=== PATIENT | female | born 1985 | race Caucasian/White ===

== ENCOUNTER 2020-05-13 15:56 | Outpatient (REF) | payer MEDICARE, MEDICAID, SELFPAY ==
[2020-05-14 11:30] LABS: SARS COV2 PCR INHOUSE NEGATIVE (Negative)
== END 2020-05-13 15:57 | disposition home or self-care (01) ==
LOC: HO.LAB 15:56
PROVIDERS: Visit Provider Internal Medicine
DX: Z20.822 Contact with and (suspected) exposure to COVID-19 (principal)
CPT/HCPCS: C9803; U0003

== ENCOUNTER 2020-05-27 15:49 | Outpatient (REF) | payer MEDICARE, MEDICAID, SELFPAY | END 2020-05-27 15:50 | disposition home or self-care (01) | LOC: HO.LAB 15:49 | PROVIDERS: Visit Provider Internal Medicine | DX: Z20.822 Contact with and (suspected) exposure to COVID-19 (principal) | CPT/HCPCS: C9803; U0003; U0005 ==

== ENCOUNTER → 2020-07-27 13:45 | Outpatient (BNVA) | payer SELFPAY | PROVIDERS: PCP Internal Medicine | DX: Z11.1 Encounter for screening for respiratory tuberculosis (principal) ==

== ENCOUNTER → 2023-10-17 11:36 | Outpatient (BNVA) | payer SELFPAY | PROVIDERS: PCP Internal Medicine | DX: Z11.1 Encounter for screening for respiratory tuberculosis (principal) ==

== ENCOUNTER 2024-12-26 09:33 | Outpatient (AMB) | payer OTHER, SELFPAY ==
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
[2024-12-26 09:39] VITALS: BMI 39.0
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
--- OUTSIDE RECORDS SUMMARY | 2024-12-26 10:33 | XMS_ITS | Encounter Summary ---
Author Organization [facility] Address [address] [place] [address] Care Team Providers Care Ed Tech Name Role Phone Prudence Balbuena MD Primary Care Provider [phone] Reason for Visit * Reason Onset Date Comments itchiness 10/27/2024 Mass 10/27/2024 Encounter Details Date Type Department Care Team (Late st Contact Info) Description 10/27/2024 Nurse Triage Adult Medicine [address] [phone] Prudence Balbuena MD [address] [place] [address] Social History Tobacco Use Types Packs/Day Years Used Date Smoking Tobacco: Former Cigarettes 0.5 20 Q uit: 03/26/2020 Passive Smoke Exposure: Never Smokeless Tobacco: Never Alcohol Use Standard Drinks/Week Comments Not Currently 0 (1 standard drink = 0.6 oz pur e alcohol) Comments Unknown Sex and Gender Information Value Date Recorded Sex Assigned at Not on file Legal Sex Female 11:39 AM EST Gender Identity Not on file Sexual Orientation Not on file documented as of this encounter Progress Notes * Mira Williamson RN - 10/27/2024 2:20 PM EDT Pt had tdap on Sunday now has a 2 inch red hard area on her arm and area is itchy and warm to touchyesterday she did not feel well with FLORES and fatigue , today she is well, took tylenol for pain has nl CSM no fever , no N/V Advised home care following the immunization reaction Protocol. RN reinforced telephone consultation and advice. Reviewed with the patient the signs and symptoms to watch for that would require immediate attention. If symptoms change, worsen or increase in intensity, to call back immediately. Reason for Disposition Immunization needed, questions about Td (Tetanus, Diphtheria), Tdap (Tetanus, Diphtheria, Pertussis) vaccine reaction: painless lump at injection site Answer Assessment - Initial Assessment Questions 1. SYMPTOMS: What is the main symptom? (e.g., pain, redness, or swelling at injection site; feeling tired, fever, muscle aches) Red ness and itiching at site 2. ONSET: When was the vaccine (shot) given? How much later did the 2 days begin? (e.g., hours,days ago) Sunday 3. SEVERITY: How bad is it? mild 4. FEVER: Do you have a fever? If Yes, ask: What is your temperature, how was it measured, and when did it start? no 5. IMMUNIZATIONS GIVEN: What shots have you recently received? tdap 6. PAST REACTIONS: Have you reacted to immunizations before? If Yes, ask: What happened? no 7. OTHER SYMPTOMS: Do you have any other symptoms? None 8. : Is there any chance you are ? When was your last menstrual period? na Protocols used: Immunization [id number] * Emory Lock - 10/27/2024 1:43 PM EDT Patient call requires triage: Symptoms patient is presenting: Patient called stating that she got a vaccination recently , statesthat the bump is itchy and hurts , as well as hard , would like to speak to nurse , states she got the vaccination on Sunday at our facility How long has patient had these symptoms?: 10/24/24 For ALL patients calling to schedule any appointment (routine, sick visit, follow up, consult, etc.) in the outpatient setting please ask the following questions: Do you have fever of higher than 101, sore throat with difficulty swallowing or severe shortness ofbreath? no If YES to any of these above symptoms, send a message to triage and do not book. Red dot. If no, an audio or video visit should be booked. Have you had close contact with someone with Coronavirus in the last 14 days? no Have you traveled abroad? no Have you traveled recently to another state outside of [place], [place], [place], [place], [place], [place], [place]? no o If yes, did you quarantine for 14 days or have a negative covid test? no If yes to any of the above, patient is not to be scheduled in office until after 14 day quarantine or negative covid test. If pain or injury related was it due to an accident at work or from a motor vehicle accident? If yes, date of accident/Injury: No If yes, gather [employer] insurance information [employer] Party Information: not applicable PCP: Prudence Balbuena MD Payor: MEDICARE / Plan: MEDICARE PART A & B / Product Type: Medicare / P documented in this encounter Plan of Treatment Upcoming Encounters Date Type Department Care Team (Late st Contact Info) Description 01/13/2025 11:30 AM EST Office Visit Gastroenterology - [address] [id number] Yamile Short [place] [address] [address] 02/13/2025 10:00 AM EST Office Visit Adult Medicine [address] [phone] Prudence Balbuena MD [address] [place] [address] documented as of this encounter Visit Diagnoses Not on filedocumented in this encounter Additional Health Concerns Assessment Noted Time PHQ-9 Depression Total Score: 11 025 1:27 PM EDT documented as of this encounter Care Teams Ed Tech Relationship Specialty Start Date End Date Prudence Balbuena MD [address] [place] [address] PCP - General Internal Medicine 09/19/21 documented as of this encounter
== END 2024-12-26 10:13 | disposition home or self-care (01) ==
PROVIDERS: PCP Internal Medicine; Visit Provider Physician Assistant
DX: M54.16 Radiculopathy, lumbar region (principal); M79.10 Myalgia, unspecified site
CPT/HCPCS: 20552; 99213

== ENCOUNTER → 2024-12-26 09:33 | Outpatient (BNVA) | payer OTHER, SELFPAY | PROVIDERS: PCP Internal Medicine; Visit Provider Physician Assistant | DX: M79.18 Myalgia, other site (principal); M54.16 Radiculopathy, lumbar region | CPT/HCPCS: 20552; J2003 ==